=== PATIENT | male | born 1960 | race Caucasian/White ===

== ENCOUNTER → 2016-10-09 | Outpatient (CLI) | payer OTHER ==
[~2016-10-09] MED LIST: AMLODIPINE-OLM1 EAC2 PO; BLEPH-105 ML LEFT EYE; FLEXERIL10 MG PO; GABAPENTIN300 MG PO; HYDROCODON-ACE1 EAC8 PO; HYDROXYZINE PAM25 MG PO; LORTAB 5-325 M1 EACH PO; LOVASTATIN; LYRICA100 MG PO; LYRICA25 MG PO; MELOXICAM15 MG PO; NABUMETONE500 MG PO; NAPROSYN500 MG PO; NORCO 5/3251 TABLET PO; PAXIL10 MG PO; PAXIL40 MG PO; PHENOBARBITAL64.8 MG PO; PREDNISONE5 M1 PO; PRINIVIL5 MG PO; PROZAC20 MG PO; PROZAC40 MG PO; RELAFEN500 M1 PO; SEROQUEL12.5 MG PO; SIMVASTATIN20 MG PO; VENTOLIN HFA18 GM IH; VICODIN 5-3001 EACH PO; VISTARIL25 MG PO; ZANAFLEX2 M1 PO; ZESTRIL20 MG PO
[2016-10-09 09:22] LABS: POINT-OF-CARE METER ID UU13113694
[2016-10-09 10:55] LABS: POINT-OF-CARE METER ID UU13113819; POINT-OF-CARE USER ID ADMSLT55
== END | disposition home or self-care (01) ==
LOC: AMB 08:25
PROVIDERS: Internal Medicine
PROC: 0DBN8ZX Excision of Sigmoid Colon, Via Natural or Artificial Opening Endoscopic, Diagnostic (ICD-10-PCS; principal; 2016-10-09)
DX: K63.5 Polyp of colon (principal); K55.20 Angiodysplasia of colon without hemorrhage; K64.8 Other hemorrhoids; I10 Essential (primary) hypertension; F17.210 Nicotine dependence, cigarettes, uncomplicated; Z79.899 Other long term (current) drug therapy; Z82.49 Family history of ischemic heart disease and other diseases of the circulatory system; Z82.0 Family history of epilepsy and other diseases of the nervous system; Z83.3 Family history of diabetes mellitus
CPT/HCPCS: 82948; 88305

== ENCOUNTER 2016-12-22 13:25 | Day surgery (SDC) | payer OTHER ==
[~2016-12-22] VITALS: Ht 172.7 cm; Wt 68.5 kg
[2016-12-28] MEDS ORDERED: LUNESTA3 MG PO (16:01)
== END 2016-12-22 15:03 | disposition home or self-care (01) ==
LOC: PAIN 13:25 → SDC 13:30 → PAIN 15:03
DX: M47.22 Other spondylosis with radiculopathy, cervical region (principal); M50.11 Cervical disc disorder with radiculopathy, high cervical region; G89.29 Other chronic pain; Z79.891 Long term (current) use of opiate analgesic; M79.1 Myalgia
CPT/HCPCS: J1030; J2250; J3010; S0020

== ENCOUNTER 2016-12-29 12:36 | Day surgery (SDC) | payer OTHER ==
[~2016-12-29] VITALS: Ht 172.7 cm; Wt 68.5 kg
[~2016-12-29 12:36] MED LIST changes: +LUNESTA3 MG PO
== END 2016-12-29 14:03 | disposition home or self-care (01) ==
LOC: PAIN 12:36 → SDC 13:15 → PAIN 14:03
PROC: 01513ZZ Destruction of Cervical Nerve, Percutaneous Approach (ICD-10-PCS; principal; 2016-12-29)
DX: M47.812 Spondylosis without myelopathy or radiculopathy, cervical region (principal); F41.9 Anxiety disorder, unspecified; Z79.891 Long term (current) use of opiate analgesic; F17.200 Nicotine dependence, unspecified, uncomplicated
CPT/HCPCS: J1030; J2250; J3010

== ENCOUNTER 2017-11-22 18:52 | Emergency (ER) | payer OTHER ==
[~2017-11-22] VITALS: Ht 172.7 cm; Wt 70.0 kg
[2017-11-22 21:03] LABS: HEMATOCRIT 46.7 % (38.0-50.0); HEMOGLOBIN 16.4 G/DL (12.5-16.6); MCH 31.1 PG (29.0-34.0); MCHC 35.1 G/DL (30.0-36.0); MCV 88.4 FL (86-99); PLATELET COUNT 171 K/uL (156-360); RBC DIS.WIDTH-CV 12.2 % (11.8-14.6); RBC DIS.WIDTH-SD 39.7 % (39-53); RED BLOOD COUNT 5.28 M/uL (4.00-5.50); WHITE BLOOD COUNT 9.3 K/uL (4.1-10.2)
[2017-11-22 21:11] LABS: ALBUMIN 4.4 g/dL (3.2-4.8); CHLORIDE 107 mEq/L (99-109); POTASSIUM 3.9 mEq/L (3.7-5.4); SODIUM 141 mEq/L (136-147)
[2017-11-22 21:14] LABS: GLUCOSE 112 mg/dL (70-99); TOTAL PROTEIN 7.4 g/dL (6.4-8.3)
[2017-11-22 21:15] LABS: TOTAL BILIRUBIN 2.1 mg/dL (0.0-1.0)
[2017-11-22 21:17] LABS: ALKALINE PHOSPHATASE 122 IU/L (3-129); CREATININE 1.1 mg/dL (0.6-1.3); GFR ESTIMATE (CALCULATED) > 59 mL/min/ (58.99-99999)
[2017-11-22 21:18] LABS: UREA NITROGEN (BUN) 16 mg/dL (9-23)
[2017-11-22 21:19] LABS: AST (GOT) 14 IU/L (2-34)
[2017-11-22 21:20] LABS: ALT (GPT) 12 IU/L (3-49)
[2017-11-23] MEDS ORDERED: MEDROL DOSEPAK4 MG PO (02:05)
[2017-11-23 02:21] VITALS: BP 165/99
== END 2017-11-23 02:21 | disposition home or self-care (01) ==
LOC: EME 18:52
PROVIDERS: Physician Assistant
DX: S09.90XA Unspecified injury of head, initial encounter (principal); R07.0 Pain in throat; Y08.89XA Assault by other specified means, initial encounter; Y07.9 Unspecified perpetrator of maltreatment and neglect; F31.9 Bipolar disorder, unspecified; F32.9 Major depressive disorder, single episode, unspecified; E78.5 Hyperlipidemia, unspecified; F17.200 Nicotine dependence, unspecified, uncomplicated; Z88.5 Allergy status to narcotic agent; Z88.8 Allergy status to other drugs, medicaments and biological substances
CPT/HCPCS: 70450; 70498; 72125; 80053; 85027; 99281; 99284; J7512